=== PATIENT | male | born 1960 | race Caucasian/White ===

== ENCOUNTER 2020-02-08 00:47 | Emergency (ER) | payer OTHER ==
[2020-02-08] MEDS ORDERED: Sodium Chloride 0.9% 10 ML Syringe FLUSH PRN (00:50)
--- NOTE | 2020-02-08 00:50 | EDM.PDOC ---
ED HPI GENERAL MEDICAL PROBLEM - General Chief Complaint: Chest Pain Stated Complaint: chest pain Time Seen by Provider: 02/08/20 00:50 Source of Information: Reports: Patient, Old Records ([facility] EMR. No paper hospital chart available.) History Limitations: Reports: No Limitations - History of Present Illness INITIAL COMMENTS - FREE TEXT/NARRATIVE: Patient drove himself to the emergency room via private automobile requesting a workup for possible acute [place]. At about 21:30 hours this evening the patient began experiencing some 47/10 right arm pain with some paresthesias. He became somewhat anxious about these symptoms then started hyperventilating with additional history of moderate lawn work during the majority of the day today. He denies any acute injury. The patient denies any chest pain/pressure, heart flutter, dizziness, orthostasis, orthopnea, diaphoresis, recent decreased exercise tolerance, or any other anginal-type symptoms. No recent history of abdominal pain, heartburn, nausea, diarrhea, melena, gross hematochezia, or any food intolerance, including fatty foods, etc. with normal bowel movement earlier today. He denies any gross hematuria, colic, UTI symptoms. The patient also denies any recent fever, cough, wheezing, dyspnea, etc.. Onset: Today, Gradual Onset Date: 02/07/20 Onset Time: 21:30 Duration: Constant Location: Reports: Upper Extremity, Right. Denies: Head, Face, Neck, Chest, Abdomen, Back, Upper Extremity, Left, Radiates to Quality: Reports: Ache, Same as Previous Episode Severity: Moderate Improves with: Reports: None Worsens with: Reports: None Context: Reports: Activity, Other (As above) Treatments ALLERGY SPECIALIST: Reports: Other (see below) (None) Right Arm Pain Score (Numeric/FACES): 7 - Related Data Allergies Allergy/AdvReac Type Severity Reaction Status Date / Time No Known Allergies Allergy Verified 02/08/20 01:32 Home Meds: Home Meds Docusate Sodium/Sennosides [Senna Plus] 1 tab PO ASDIRECTED 02/08/20 [History] Levothyroxine [Synthroid] 50 mcg PO ACBREAKFAST #60 tab 02/08/20 [Rx] Past Medical History HEENT History: Reports: Impaired Vision, Other (See Below). Denies: Allergic R hinitis, Cataract, Glaucoma, Hard of Hearing, Macular Degeneration, Otitis Media Other HEENT History: Patient wore glasses not currently.. Cardiovascular History: Reports: Arrhythmia, Other (See Below). Denies: Afib, Aneurysm, Blood Clots/VTE/DVT, CAD, Heart Murmur, High Cholesterol, Hypertension, [place], Syncope Other Cardiovascular History: Bradycardia, PACs Respiratory History: Reports: Intubation, Previous. Denies: Asthma, Bronchitis, Recurrent, COPD, Intubation, Difficult, PE, Pneumonia, Recurrent, Pneumothorax, Sleep Apnea, TB Gastrointestinal History: Reports: Cholelithiasis, Chronic Constipation, Helicobacter Pylori, Other (See Below). Denies: Celiac Disease, GERD, GI Bleed, Inflammatory Bowel Disease, Irritable Bowel Syndrome, Jaundice, Pancreatitis, PUD Other Gastrointestinal History: Cholecystitis with secondary LFTs elevation r equiring surgeries as below. Genitourinary History: Reports: None. Denies: Acute Renal Failure, BPH, Chronic Renal Insuffiency, Renal Calculus, STD, Urinary Incontinence, UTI, Recurrent Musculoskeletal History: Reports: Arthritis, Back Pain, Chronic, Osteoarthritis. Denies: Amputation, Fracture, Gout, Neck Pain, Chronic, RA, SLE Neurological History: Reports: None. Denies: Cerebral Aneurysms, Concussion, CVA, Headaches, Chronic, Head Trauma, Migraines, MS, Neuropathy, Peripheral, Parkinson's, Seizure, TIA Psychiatric History: Reports: None. Denies: Abuse, Victim of, ADD, ADHD, Addiction, Anxiety, Depression, Psych Hospitalization(s), Psychosis, PTSD, Suicide Attempt, Suicidal Ideation Endocrine/Metabolic History: Reports: Hypothyroidism, Obesity/BMI 30+, Other (See Below). Denies: Diabetes, Gestational, Diabetes, Type I, Diabetes, Type II, Diabetes Mellitus, Type 3c, IDDM Other Endocrine/Metabolic History: Borderline hypothyroidism with no current therapy. Hematologic History: Reports: Other (See Below). Denies: Anemia, Blood Transfusion(s), Iron Deficiency Other Hematologic History: He does frequently donate blood and plasma. Immunologic History: Reports: None. Denies: AIDS, HIV, SLE Oncologic (Cancer) History: Reports: None. Denies: Basal Cell Carcinoma, Colon, Hodgkin's Lymphoma, Leukemia, Lymphoma, Malignant Melanoma, Non-Hodgkin's Lymphoma, Prostate, Squamous Cell Carcinoma Dermatologic History: Reports: None. Denies: Eczema, Psoriasis - Infectious Disease History Infectious Disease History: Reports: None. Denies: C-Difficile, Chicken Pox, Measles, Meningitis, Mononucleosis, MRSA, Mumps, Rheumatic Fever, RSV, Rubella, Scarlet Fever, Shingles, TB, VRE - Past Surgical History Head Surgeries/Procedures: Reports: None HEENT Surgical History: Reports: Oral Surgery, Other (See Below). Denies: Adenoidectomy, Cataract Surgery, Eye Surgery, Laser Surgery, LASIK, Myringotomy w Tube(s), Naso-Sinus Surgery, Tonsillectomy Other HEENT Surgeries/Procedures: [place] teeth extraction x 2 uppers in his early 20s with additional teeth extractions. Cardiovascular Surgical History: Reports: None. Denies: Varicose Respiratory Surgical History: Reports: None. Denies: Thoracentesis GI Surgical History: Reports: Cholecystectomy, ERCP, Other (See Below). Denies: Appendectomy, Colonoscopy, EGD, Hernia, Abdominal, Hernia, Inguinal, Hernia Repair/Other Other GI Surgeries/Procedures: ERCP with additional laparoscopic converted to open cholecystectomy on 09/01/14. Male Surgical History: Reports: Circumcision, Other (See Below). Denies: Vasectomy Other Male Surgeries/Procedures: Circumcision as an infant. Endocrine Surgical History: Reports: None. Denies: Thyroid Biopsy Neurological Surgical History: Reports: None. Denies: C-Spine, Discectomy, Laminectomy, Lumbar Spine, Sacral Spine, Spinal Fusion, Thoracic Spine, Vertebroplasty Musculoskeletal Surgical History: Reports: None. Denies: Arthroscopic Procedure, Carpal Tunnel, Ganglion Cyst, Joint Replacement, ORIF, Shoulder Surgery Oncologic Surgical History: Reports: None Dermatological Surgical History: Reports: None - Past Imaging History Past Imaging History: Reports: CAT Scan (CTA of the chest and CT of the abdomen and pelvis on 08/31/14.) Social & Family History - Family History Cardiac: Reports: CAD, [place], Other (See Below). Denies: Afib, Arrhythmia, Blood Clots/VTE/DVT, High Cholesterol, Hypertension Other Cardiac Family History: Father with history of recurrent MIs and history of fatal cardiac surgery of unknown type in his early 80s. Respiratory: Reports: COPD, Other (See Below) Other Respiratory Family Hisory: Mother with COPD. GI: Reports: Bowel Obstruction, GI bleed, PUD, Other (See Below) Other GI Family History: Maternal grandfather with fatal bowel obstruction in his early 50s. Brother with peptic ulcer disease, which did require surgery. Endocrine/Metabolic: Reports: Diabetes, type II, IDDM, Other (See Below) Other Endocrine/Metabolic Family History: Brother with AODM. Paternal uncle with fatal IDDM in his early 70s. Oncologic: Reports: Brain, Other (See Below) Other Oncologic Family History: Niece with brain cancer in her teenage years. - Tobacco Use Smoking Status *Q: Never Smoker Tobacco Use Within Last Twelve Months: No Used Tobacco, but Quit: No Smoking Cessation Information Provided To Patient: No Second Hand Smoke Exposure: No Second Hand Smoke Education Provided: No - Caffeine Use Caffeine Use: Reports: None. Denies: Coffee, Energy Drinks, Soda, Tea - Alcohol Use Alcohol Use History: No Days Per Week of Alcohol Use: 0 Number of Drinks Per Day: 2 Number of Drinks Per Day Comment: Usually beer about once per month. No previous DWIs, problems with alcohol abuse, etc. Total Drinks Per Week: 0 Alcohol Use in Last Twelve Months: Yes - Recreational Drug Use Recreational Drug Use: No Drug Use in Last 12 Months: No Recreational Drug Type: Denies: Amphetamines (Speed), Cocaine, Heroin, Inhalants (Glues, Solvents, Aerosols), LSD (Acid), Marijuana/Hashish, Methamphetamine, Morphine, Oxycodone - Living Situation & Occupation Living situation: Reports: Single (No children), with Family (Cares for his elderly mother) Occupation: Employed (Mortgage Analyst) ED ROS GENERAL - Review of Systems Review Of Systems: Comprehensive ROS is negative, except as noted in HPI. ED EXAM, GENERAL - Physical Exam Exam: See Below Exam Limited By: No Limitations General Appearance: Alert, WD/WN, No Apparent Distress, Anxious (Mild to moderate) Eye Exam: Bilateral Eye: EOMI, Normal Inspection (No nystagmus), PERRL Ears: Normal External Exam Nose: Normal Inspection, Normal Mucosa, No Blood Throat/Mouth: Normal Inspection, Normal Lips, Normal Teeth (Occasional missing teeth), Normal Gums, Normal Oropharynx, Normal Voice, No Airway Compromise. No: Dysphagia, Perioral Cyanosis Head: Atraumatic, Normocephalic. No: Facial Swelling, Facial Tenderness, Sinus Tenderness Neck: Normal Inspection, Supple, Non-Tender, Full Range of Motion. No: Carotid Bruit, Lymphadenopathy (L), Lymphadenopathy (R), Thyromegaly Respiratory/Chest: No Respiratory Distress, Lungs Clear, Normal Breath Sounds, No Accessory Muscle Use, Chest Non-Tender. No: Pleural Rub, Retractions Cardiovascular: Normal Peripheral Pulses, No Edema, No Gallop, No JVD, No Murmur, No Rub, Bradycardia (Regular rhythm). No: Gallop/S3, Gallop/S4, Friction Rub Peripheral Pulses: 2+: Radial (L), Radial (R), Popliteal (R), Posterior Tibial (L) GI/Abdominal: Normal Bowel Sounds, Soft, Non-Tender, No Organomegaly, No Distention, No Abnormal Bruit, No Mass, Pelvis Stable, Other (Obese). No: Guarding (Male) Exam: Deferred Rectal (Males) Exam: Deferred Back Exam: Normal Inspection, Full Range of Motion. No: CVA Tenderness (L), CVA Tenderness (R) Extremities: Normal Inspection, Normal Range of Motion, Non-Tender, No Pedal Edema, Normal Capillary Refill. No: Arm Pain, Nakul's Sign Neurological: Alert, Oriented, CN II-XII Intact, Normal Cognition, Normal Gait, Normal Reflexes (Negative Babinski's), No Motor/Sensory Deficits Psychiatric: Anxious (Moderate). No: Depressed Mood Skin Exam: Warm, Dry, Intact, Normal Color, No Rash. No: Diaphoretic, Ecchymosis, Petechiae, Wound/Incision Lymphatic: No Adenopathy EKG INTERPRETATION EKG Date: 02/08/20 Time: 01:04 Rhythm: Other (Sinus bradycardia somewhat improved with resolved PACs) Rate (Beats/Min): 55 [place]: Normal (Neutral) P-Wave: Present QRS: Normal (0.09 seconds) ST-T: Normal (Stable T-wave inversion in lead 3 with resolution of T-wave inversion in lead V1) QT: Normal NC/PQ Interval: 0.17 seconds with mild poor R-wave progression in the anterior leads Comparison: Change From Previous EKG (As above since 08/31/14) EKG Interpretation Comments: 1. No acute ischemic changes 2. Sinus bradycardia Course - Vital Signs Last Recorded V/S: Last Vital Signs Temp 36.9 C 02/08/20 01:05 Pulse 65 02/08/20 01:45 Resp 20 02/08/20 01:05 BP 151/81 H 02/08/20 01:45 Pulse Ox 96 02/08/20 01:05 Vital Signs - 24 hr 02/08/20 02/08/20 02/08/20 00:47 01:05 01:38 Temperature [ 36.9 C Temporal] Pulse, 62 55 L Peripheral [ Apical] Respiratory 20 Rate Blood Pressure 183/75 H Blood Pressure 192/89 H 183/75 H [Left Upper Arm ] O2 Sat by Pulse 96 Oximetry 02/08/20 01:45 Temperature [ Temporal] Pulse, 65 Peripheral [ Apical] Respiratory Rate Blood Pressure Blood Pressure 151/81 H [Left Upper Arm ] O2 Sat by Pulse Oximetry - Orders/Labs/Meds Orders: Active Orders 24 hr Category Date Time Status Cardiac Monitoring [RC] . DIRECTED Care 02/08/20 00:50 Active EKG Documentation Completion [RC] ASDIRECTED Care 02/08/20 00:50 Active Oxygen Therapy, ED [RC] PRN Care 02/08/20 00:50 Active Peripheral IV Care [RC] . DIRECTED Care 02/08/20 00:50 Active Pulse Oximetry [RC] CONTINUOUS Care 02/08/20 00:50 Active Up With Assistance [RC] PFP Care 02/08/20 00:50 Active Vital Signs [RC] PFP Care 02/08/20 00:50 Active Chest 1V Frontal [CR] Stat Exams 02/08/20 00:50 Taken Obtain Past Medical Record [OM.PC] Urgent Oth 02/08/20 00:50 Active Peripheral IV Insertion Adult [OM.PC] Stat Oth 02/08/20 00:50 Ordered Resuscitation Status Stat Resus Stat 02/08/20 00:50 Ordered EKG 12 Lead [EK] Stat Ther 02/08/20 00:50 Ordered Labs: Laboratory Tests 02/08/20 02/08/20 02/08/20 Range/Units 01:00 01:00 01:00 WBC 10.2 (4.0-10.2) K/uL RBC 5.26 (4.33-5.41) M/uL Hgb 15.5 D (13.1-16.8) g/dL Hct 43.4 (39.0-49.0) % MCV 82.5 L (84.0-98.0) fL MCH 29.5 (28.2-33.3) pg MCHC 35.7 (31.7-36.0) g/dL RDW 13.5 (11.2-14.1) % Plt Count 252 (150-350) K/uL Neut % (Auto) 42.2 L (45.0-80.0) % Lymph % (Auto) 41.5 (10.0-50.0) % Rich % (Auto) 11.4 (2.0-14.0) % Eos % (Auto) 4.3 (0.0-5.0) % Baso % (Auto) 0.6 (0.0-2.0) % Neut # (Auto) 4.31 (1.40-7.00) K/uL Lymph # (Auto) 4.23 H (0.50-3.50) K/uL Rich # (Auto) 1.16 H (0.00-1.00) K/uL Eos # (Auto) 0.44 (0.00-0.50) K/uL Baso # (Auto) 0.06 (0.00-0.20) K/uL PT 10.0 (9.5-12.0) SEC INR 1.0 APTT 24.3 L (24.5-32.8) SEC D-Dimer, Quantitative < 100 (0-400) ng/mL Sodium (136-145) mmol/L Potassium (3.5-5.1) mmol/L Chloride (98-107) mmol/L Carbon Dioxide (21.0-32.0) mmol/L BUN (7-18) mg/dL Creatinine (0.51-1.17) mg/dL Est Cr Clr Drug Dosing Estimated GFR (MDRD) mL/min Glucose (74-106) mg/dL Lactic Acid (0.4-2.0) mmol/L Uric Acid (2.6-7.2) mg/dL Calcium (8.5-10.1) mg/dL Magnesium (1.8-2.4) mg/dL Total Bilirubin (0.2-1.0) mg/dL AST (15-37) U/L ALT (12-78) U/L Alkaline Phosphatase (46-116) IU/L Creatine Kinase (26-308) U/L Creatine Kinase Index (0.0-2.5) % CK-MB (CK-2) (0.00-3.60) ng/mL Troponin I (0.000-0.056) ng/mL NT-Pro-B Natriuret Pep (0-125) pg/mL Total Protein (6.4-8.2) g/dL Albumin (3.4-5.0) g/dL TSH, Ultra Sensitive (0.358-3.740) mIU/mL 02/08/20 02/08/20 Range/Units 01:00 01:00 WBC (4.0-10.2) K/uL RBC (4.33-5.41) M/uL Hgb (13.1-16.8) g/dL Hct (39.0-49.0) % MCV (84.0-98.0) fL MCH (28.2-33.3) pg MCHC (31.7-36.0) g/dL RDW (11.2-14.1) % Plt Count (150-350) K/uL Neut % (Auto) (45.0-80.0) % Lymph % (Auto) (10.0-50.0) % Rich % (Auto) (2.0-14.0) % Eos % (Auto) (0.0-5.0) % Baso % (Auto) (0.0-2.0) % Neut # (Auto) (1.40-7.00) K/uL Lymph # (Auto) (0.50-3.50) K/uL Rich # (Auto) (0.00-1.00) K/uL Eos # (Auto) (0.00-0.50) K/uL Baso # (Auto) (0.00-0.20) K/uL PT (9.5-12.0) SEC INR APTT (24.5-32.8) SEC D-Dimer, Quantitative (0-400) ng/mL Sodium 137 (136-145) mmol/L Potassium 4.0 (3.5-5.1) mmol/L Chloride 101 (98-107) mmol/L Carbon Dioxide 26.3 (21.0-32.0) mmol/L BUN 17 (7-18) mg/dL Creatinine 1.09 (0.51-1.17) mg/dL Est Cr Clr Drug Dosing TNP Estimated GFR (MDRD) > 60 mL/min Glucose 115 H (74-106) mg/dL Lactic Acid 1.6 (0.4-2.0) mmol/L Uric Acid 7.1 (2.6-7.2) mg/dL Calcium 9.0 (8.5-10.1) mg/dL Magnesium 2.1 (1.8-2.4) mg/dL Total Bilirubin 0.5 (0.2-1.0) mg/dL AST 26 (15-37) U/L ALT 41 (12-78) U/L Alkaline Phosphatase 53 (46-116) IU/L Creatine Kinase 168 (26-308) U/L Creatine Kinase Index 1.1 (0.0-2.5) % CK-MB (CK-2) 1.80 (0.00-3.60) ng/mL Troponin I 0.000 (0.000-0.056) ng/mL NT-Pro-B Natriuret Pep 45 (0-125) pg/mL Total Protein 7.9 (6.4-8.2) g/dL Albumin 3.9 (3.4-5.0) g/dL TSH, Ultra Sensitive 7.087 H (0.358-3.740) mIU/mL Meds: Medications Discontinued Medications Generic Name Dose Route Start Last Admin Trade Name Freq PRN Reason Stop Dose Admin Aspirin 324 mg 02/08/20 00:50 02/08/20 01:27 Aspirin CHEW 02/08/20 00:51 324 mg ONETIME ONE Administration Famotidine 40 mg 02/08/20 00:50 02/08/20 01:26 Pepcid IVPUSH 02/08/20 00:51 40 mg ONETIME ONE Administration Nitroglycerin 0.4 mg 02/08/20 01:34 02/08/20 01:38 Nitrostat SL 02/09/20 01:35 0.4 mg ONETIME STA Administration Sodium Chloride 10 ml 02/08/20 00:50 Saline Flush FLUSH ASDIRECTED PRN Keep Vein Open Ticagrelor 180 mg 02/08/20 00:50 02/08/20 01:27 Brilinta PO 02/08/20 00:51 180 mg ONETIME ONE Administration - Radiology Interpretation Free Text/Narrative:: engineering geologist shows mild to moderate sinus bradycardia with heart rate in the low to mid-50s with occasional normal heart rate in the low 60s. No ectopy or arrhythmia. Chest x-ray, portable, shows borderline cardiomegaly and pulmonary obstructive disease with no pulmonary infiltrates, CHF, pneumothorax, etc. Departure - Departure Time of Disposition: 02:15 Disposition: Home, Self-Care 01 Condition: Good Clinical Impression: Chest pain, Hypothyroidism, Osteoarthritis, H. pylori infection, Bradycardia, PAC (premature atrial contraction), Hypertension, Obesity (BMI 30.0-34.9), Mixed anxiety depressive disorder Prescriptions: Levothyroxine [Synthroid] 50 mcg PO ACBREAKFAST #60 tab Instructions: Hypothyroidism, Nonspecific Chest Pain, Adult, [id number], Hypertension, Adult, [id number] Referrals: PCP,None [Primary Care Provider] - Forms: ED Department Discharge Additional Instructions: 1. Followup with your regular provider 57 days as directed for reevaluation and recommended 12 hour fasting lipid panel, glycosylated hemoglobin, and PSA with consideration of update of your yearly exam at that time. Bring these discharge instructions with you to that visit. 2. Discuss possibility of scheduling a Cardiolite stress test in this facility at the above visit 3. Consider screening colonoscopy and EGD after your heart status has been determined especially in light of your previously untreated H. pylori infection 4. Consider initiation of medications for your blood pressure at the above follow-up with stress test to be conducted only after your blood pressure has stabilized. 5. TSH should be repeated in 4 weeks secondary to your newly initiated Synthroid. 6. 50% maximum exercise restriction until your heart status has been determined 7. Tylenol 650 mg by mouth every 4 hours and/or OTC ibuprofen 2-3 tabs by mouth every 6 hours with food as directed./needed. You may stagger these medications for 48-72 hours only, which essentially means that you are receiving a pain me dication about every 2 hours. 8. BenGay or equivalent, heating pad, and/or ice packs as directed. 9. Immediately after this visit verify that your cellular telephone's voicemail has been activated and is empty. Also verify that your home telephone's answering machine is operating properly and has space to receive messages. Note that it is sometimes necessary for us to be able to contact you at a later date to discuss your medical care. 10. Please remember that we are ALWAYS here for you and want to answer any questions you may have. Feel free to call the hospital any time and we call you back DELIA. Sepsis Event Note (ED) - Focused Exam Vital Signs: Vital Signs Temp Pulse Resp BP BP Pulse Ox 02/08/20 01:45 65 151/81 H 02/08/20 01:38 183/75 H 02/08/20 01:05 36.9 C 55 L 20 183/75 H 96 02/08/20 00:47 62 192/89 H - Problem List & Annotations (1) Chest pain SNOMED Code(s): 09763861 Code(s): R07.9 - CHEST PAIN, UNSPECIFIED Status: Acute Priority: High Onset Date: 08/31/14 Annotation/Comment:: Atypical chest pain with precautions provided. Various options were discussed with the patient not wishing to be hospitalized at this time. Consider Cardiolite stress test once his blood pressures have stabilized. Activity restrictions were discussed. (2) Osteoarthritis SNOMED Code(s): 517086225 Code(s): M19.90 - UNSPECIFIED OSTEOARTHRITIS, UNSPECIFIED SITE Status: Chronic Priority: Medium Annotation/Comment:: Right arm pain likely secondary to overuse while doing yard work today. No true anginal type symptoms. Symptomatic relief as per discharge instructions. No evidence of significant injury. (3) Hypertension SNOMED Code(s): 37711614 Code(s): I10 - ESSENTIAL (PRIMARY) HYPERTENSION Status: Acute Priority: High Onset Date: 02/08/20 Annotation/Comment:: Probable beginning hypertension with elevated blood pressures in 2014, although note acute cholecystitis at that time. Blood pressures improved with sublingual nitroglycerin tablets, which were given for his blood pressure control and as cardiac prophylaxis, or no effect on his arm pain with this medication. The patient does not wish to initiate antihypertensive medication at this time. Continue to follow his blood pressures closely through his regular provider. Qualifiers: Hypertension type: essential hypertension Qualified Code(s): I10 - Essential (primary) hypertension (4) Mixed anxiety depressive disorder SNOMED Code(s): 684691516 Code(s): F41.8 - OTHER SPECIFIED ANXIETY DISORDERS Status: Acute Priority: Medium Onset Date: ~02/08/20 Annotation/Comment:: Anxiety component to patient's symptoms today with probable anxiety depression disorder. No medical therapy for now. Note mildly elevated TSH as above. Continue to observe his symptoms closely with consideration of initiation of medical therapy, etc. by his regular provider as needed. (5) Obesity (BMI 30.0-34.9) SNOMED Code(s): 043917235518994 Code(s): E66.9 - OBESITY, UNSPECIFIED Status: Chronic Priority: Medium Annotation/Comment:: Weight loss in moderation is advisable. Patient has poor preventative healthcare with update of his HCM, etc. as per discharge instructions. Lipid panel and glycosylated hemoglobin at follow-up. (6) H. pylori infection SNOMED Code(s): 992694820 Code(s): A04.8 - OTHER SPECIFIED BACTERIAL INTESTINAL INFECTIONS Status: Chronic Onset Date: 08/31/14 Annotation/Comment:: Not previously treated initially diagnosed in August 2014. Further GI workup as per discharge instructions. Consider stool specimen for H. pylori antigen, if patient refuses recommended EGD, etc. (7) Hypothyroidism SNOMED Code(s): 59145999 Code(s): E03.9 - HYPOTHYROIDISM, UNSPECIFIED Status: Acute Priority: Medium Onset Date: 08/31/14 Annotation/Comment:: Previously diagnosed borderline hypothyroidism on 08/31/14 with no therapy or follow-up to this point. No progressive TSH elevation. Initiate low-dose Synthroid with repeat TSH in 4 weeks. (8) PAC (premature atrial contraction) SNOMED Code(s): 433064373 Code(s): I49.1 - ATRIAL PREMATURE DEPOLARIZATION Status: Chronic Priority: Medium Onset Date: 08/31/14 Annotation/Comment:: No recurrence today. (9) Bradycardia SNOMED Code(s): 52212583 Code(s): R00.1 - BRADYCARDIA, UNSPECIFIED Status: Chronic Priority: Medium Onset Date: 08/31/14 Annotation/Comment:: Stable. Observe for now. - Problem List Review Problem List Initiated/Reviewed/Updated: Yes - My Orders Last 24 Hours: My Active Orders 02/08/20 00:50 Cardiac Monitoring [RC] . DIRECTED EKG Documentation Completion [RC] ASDIRECTED Oxygen Therapy, ED [RC] PRN Peripheral IV Care [RC] . DIRECTED Pulse Oximetry [RC] CONTINUOUS Up With Assistance [RC] PFP Vital Signs [RC] PFP Chest 1V Frontal [CR] Stat Obtain Past Medical Record [OM.PC] Urgent Peripheral IV Insertion Adult [OM.PC] Stat Resuscitation Status Stat EKG 12 Lead [EK] Stat - Assessment/Plan Last 24 Hours: My Active Orders 02/08/20 00:50 Cardiac Monitoring [RC] . DIRECTED EKG Documentation Completion [RC] ASDIRECTED Oxygen Therapy, ED [RC] PRN Peripheral IV Care [RC] . DIRECTED Pulse Oximetry [RC] CONTINUOUS Up With Assistance [RC] PFP Vital Signs [RC] PFP Chest 1V Frontal [CR] Stat Obtain Past Medical Record [OM.PC] Urgent Peripheral IV Insertion Adult [OM.PC] Stat Resuscitation Status Stat EKG 12 Lead [EK] Stat Assessment:: As above. Plan: As above. Extensive precautions were given to the patient, who is in agreement with the treatment plan. See Patient Instructions for further treatment and plan.
[2020-02-08 01:19] LABS: PTT,PARTIAL THROMBOPLSTIN TIME 24.3 SEC (24.5-32.8)
[2020-02-08] MEDS: Famotidine 20 MG/2 ML SDV IVPUSH ONE (01:26)
[2020-02-08] MEDS: Aspirin 81 MG Tab.Chew CHEW ONE (01:27)
[2020-02-08] MEDS: Ticagrelor 90 MG Tab PO ONE (01:27)
[2020-02-08 01:31] LABS: CHLORIDE,CL 101 mmol/L (98-107); SODIUM,NA 137 mmol/L (136-145)
[2020-02-08] MEDS: Nitroglycerin 0.4 MG Tab.SL SL STA (01:38)
[2020-02-08 04:32] VITALS: BP 151/81; PULSE 65
== END 2020-02-08 02:15 | disposition home or self-care (01) ==
LOC: LL.ED 00:47
DX: R07.9 Chest pain, unspecified (principal); I49.1 Atrial premature depolarization; E03.9 Hypothyroidism, unspecified; I10 Essential (primary) hypertension; A04.8 Other specified bacterial intestinal infections; F41.8 Other specified anxiety disorders; M19.90 Unspecified osteoarthritis, unspecified site; E66.9 Obesity, unspecified; Z68.33 Body mass index [BMI] 33.0-33.9, adult
CPT/HCPCS: 36415; 71045; 80053; 82550; 82553; 83605; 83735; 83880; 84443; 84484; 84550; 85025; 85379; 85610; 85730; 93005; 96374; 99285; A9270; J3490